=== PATIENT | male | born 1965 | race Caucasian/White ===

== ENCOUNTER → 2016-07-08 | Outpatient (CLI) | payer OTHER ==
--- NOTE | 2016-07-10 18:44 | DX ---
DEXA Bone Densitometry Technique: DEXA scan was performed on [employer] W Bone Densitometer Indication: Osteoporosis. Comparator Study: October 30, 2013. Results: Lumbar Spine BMD: 0.721 T-score: -3.4 Prior BMD: 0.736 % change: -2% Total Hip (Right) BMD: 0.918 T-score: -0.8 Femoral Neck (Right) BMD: 0.770 T-score: -1.2 Total Hip (Left) BMD: 0.899 T-score: -0.9 Prior BMD: 0.917 % change: -2% Femoral Neck (Left) BMD: 0.745 T-score: -1.4 Conclusion: Osteoporosis based on the bone mineral density of the lumbar spine. Additional Comments: In comparison to the previous study from October 2013, there has been a decrease in bone mineral density of the lumbar spine and the total left hip, however, these changes are not signi ficant. This patient meets [employer] Osteopor[employer] guidelines for further management and treatment o f osteoporosis. By FRAX calculation the estimated 10 year probability of any major osteoporotic fracture is 2.8% and the estimated 10 year probability of hip fracture is 0.3%. Consider repeating the study in two years or as clinically indicated. Note: The risk of osteoporotic fractures increases approximately twofold for each 1.0 SD decrease in T-score. The T-score represents the standard deviations from a young normal, same sex, reference po pulation. Low bone density is not the only risk factor for fracture. Clinical factors to consider include fall risk, previous osteoporotic fractures, family history of fractures, smoking, and low body weight. Patients who have an unexpectedly low BMD may need to be evaluated for secondary causes of low bone m ineral density. In comparing the present study to a prior study, lack of a significant increase or decrease in BMD ma y signify efficacy of the patient's present treatment. Bone mineral density measurements performed with densitometers produced by different manufacturers ar e not comparable. For the most reproducible BMD measurement, subsequent exams should be performed on the same densitometer.
== END ==
LOC: BMCIMAGING 15:18
PROVIDERS: ATTEND Internal Medicine
DX: M81.0 Age-related osteoporosis without current pathological fracture (principal)

== ENCOUNTER 2018-11-20 18:10 | Emergency (ER) | payer OTHER | END 2018-11-20 20:39 | disposition home or self-care (01) ==